=== PATIENT | female | born 2000 | race African-American/Black ===

== ENCOUNTER 2025-01-04 10:40 | Emergency (ER) | payer MEDICAID ==
[~2025-01-04] VITALS: Ht 160 cm; Wt 54.0 kg
--- NOTE | 2025-01-04 10:58 | ED.PDOC ---
History of Present Illness HPI Comments 24 year old female that is currently 11 weeks presents to the ED for the c/c of Abnormal Vaginal Bleeding. Pt states that her bleeding started last night w/ associated cramping. Pt notes that her last Menstrual Period was in October of this year. Pt notes that this is her Second . No other as sociated symptoms, modifiers, recent injuries or sick contacts present at this time. Time Seen by MD: 10:55 Reviewed Notes: Nurses Notes, Medications, Allergies Information Source: Patient, Spouse Mode of Arrival: Ambulatory Severity: Mild Timing: Hours Duration: Since onset, Hours Prehospital treatment: None Past Medical History PAST MEDICAL HISTORY: Denies Surgical History: Denies all surgeries DIFFERENTIAL TESTER History: No Pertinent DIFFERENTIAL TESTER History Family History Family History: Unknown Social History Smoker: Non-Smoker Alcohol: Denies ETOH Use Drugs: Denies Drug Use Lives In: Home Constitutional: denies: chills, diaphoresis, fatigue, fever, malaise, sweats, weakness, others EENTM: denies: blurred vision, double vision, ear bleeding, ear discharge, ear drainage, ear pain, ear ringing, eye pain, eye redness, hearing loss, mouth pain, mouth swelling, nasal discharge, nose bleeding, nose congestion, nose pain, photophobia, tearing, throat pain, throat swelling, voice changes, others Respiratory: denies: cough, hemoptysis, orthopnea, SOB at rest, shortness of breath, SOB with excertion, stridor, wheezing, others Cardiovascular: denies: chest pain, dizzy spells, diaphoresis, Dyspnea on ex ertion, edema, irregular heart beat, left arm pain, lightheadedness, palpitations, PND, syncope, others Gastrointestinal: denies: abdomen distended, abdominal pain, blood streaked bowels, constipated, diarrhea, dysphagia, difficulty swallowing, hematemesis, melena, nausea, poor appetite, poor fluid intake, rectal bleeding, rectal pain, vomiting, others Genitourinary: reports: abnormal vagina bleeding (with cramps); denies: burning, dyspareunia, dysuria, flank pain, frequency, hematuria, incontinence, pain, , vagina discharge, urgency, others Neurological: denies: dizziness, fainting, headache, left sided numbness, left sided weakness, numbness, paresthesia, pre-existing deficit, right sided numbness, right sided weakness, seizure, speech problems, tingling, tremors, weakness, others Musculoskeletal: denies: back pain, gout, joint pain, joint swelling, muscle pain, muscle stiffness, neck pain, others Integumetry: denies: bruises, change in color, change in hair/nails, dryness, laceration, lesions, lumps, rash, wounds, others Allergic/Immunocompromised: denies: Difficulty Healing, Frequent Infections, Hi ves, Itching, others Hematologic/Lymphatic: denies: anemia, blood clots, easy bleeding, easy bruising, swollen glands, others Endocrine: denies: excessive hunger, excessive sweating, excessive thirst, excessive urination, flushing, intolerance to cold, intolerance to heat, unexplained weight gain, unexplained weight loss, others Psychiatric: denies: anxiety, bipolar disorder, depression, hopeless, panic disorder, schizophrenia, sleepless, suicidal, others All Other Systems: Reviewed and Negative Physical Exam General Appearance: Moderate Distress, Normal HEENT: Normal ENT Inspection, Pharynx Normal, TMs Normal Neck: Full Range of Motion, Non-Tender, Normal, Normal Inspection Respiratory: Chest Non-Tender, Lungs Clear, No Accessory Muscle Use, No Respiratory Distress, Normal Breath Sounds Cardiovascular: No Edema, No JVD, No Murmur, No Gallop, Normal Peripheral Pulses, Regular Rate/Rhythm Breast Exam: Deferred Gastrointestinal: No Organomegaly, Non Tender, No Pulsatile Mass, Normal Bowel Sounds, Soft Genitalia: Deferred Pelvic: Deferred Rectal: Deferred Extremities: No calf tenderness, Normal capillary refill, Normal inspection, Normal range of motion, Non-tender, No pedal edema Musculoskeletal : Apperance: Normal Neurologic: Alert, svp business development II-XII nml as Tested, No Motor Deficits, Normal Affect, Normal Mood, No Sensory Deficits Cerebellar Function: Normal Reflexes: Normal Skin: Dry, Normal Color, Warm Peripheral Pulses: 3+ Radial (R), 3+ Radial (L) Lymphatic: No Adenopathy Was a procedure done? Was a procedure done?: No Differential Dx Considerations may include: Normal Electrolyte imbalance X-Ray, Labs, Meds, VS Vital Signs Date Time Temp Pulse Resp B/P (MAP) Pulse Ox O2 Delivery O2 Flow Rate FiO2 01/04/25 11:07 98.9 93 16 126/77 (93) 94 98.9 Lab Test 01/04/25 11:05 Range/Units Urine Color Yellow Yellow Urine Clarity Turbid H Clear Urine pH 5.5 5.0-9.0 Urine Specific [place] 1.027 1.001-1.035 Urine Protein Trace H Negative Urine Ketones Negative Negative Urine Blood 3+ H Negative /uL Urine Nitrite Negative Negative Urine Bilirubin Negative Negative Urine Urobilinogen Normal Negative mg/dL Urine Leukocyte Esterase 3+ Negative /uL Urine RBC 556 0 - 4 /hpf Urine Microscopic WBC 159 H 0-5 /HPF Urine Squamous Epithelial Cells Mod <5 /hpf Urine Bacteria None seen None Seen /hpf Urine Mucus Few None Seen Urine Glucose Normal Normal mg/dL Urine Test Positive Negative Patient alert. Complaining of vaginal bleeding. Vitals stable. Answering questions. Ambulating. No sign of distress. No sepsis. Ultrasound revealed normal . Urinalysis shows UTI. Was given prescription of Keflex antibiotic. Explained to the patient. Was told to follow up with her OBGYN. Was told to follow up with her primary care physician. Was told to come back if there is any problem. PATIENT: ALEXIA GUERRERO ACCT: [id number] UNIT: [id number] : 2000 LOC: ER ROOM / BED: / AGE / SEX: 24 / F ADM STATUS: REG ER SERVICE 1051 ORDERING PHYSICIAN: LO MELGAR MD PROCEDURE(s): OB4US - OB ULTRASOUND COMP LESS 14WKS REASON: cramping ORDER NUMBER(s): [id number], ACCESSION NUMBER(s): [id number] EXAM DESCRIPTION: US OB ULTRASOUND COMP LESS 14WKS CLINICAL HISTORY: cramping COMPARISON: None TECHNIQUE: Multiple transverse and longitudinal sonograms of the pelvis were obtained utilizing transabdominal and transvaginal sonography. FINDINGS: The uterus measures 11.2 X 7.1 X 7.7 cm. A single viable intrauterine is identified. The crown-rump length measures 3.7 cm, corresponding to a sonogr aphic gestational age of 10 weeks and 4 days. Positive heart motion is identified, with heart rate of 178 beats per minute. Small subchronic hematoma measuring 10 x 7 x 8 mm. The right ovary measures 2.8 X 2.0 X 1.8 cm . The right ovary demonstrates normal echogenicity and vascularity. The left ovary is not visualized. No suspicious adnexal lesions. There is no free fluid. IMPRESSION: 1. Single viable intrauterine with a sonographic gestational age of 10 weeks and 4 days. Positive heart motion is identified. 2. Small subchronic hematoma. 3. Unremarkable right ovary. The left ovary was not visualized. Time of 1ST Reevaluation: 11:25 Reevaluation 1ST: Unchanged Patient Education/Counseling: Diagnosis, Treatment, Need For Follow Up Family Education/Counseling: Diagnosis, Treatment, Need For Follow Up SEPSIS Sepsis Screen Physician Orders Ob Ultrasound Comp Less 14wks (01/04/25 10:51) Vital Signs Date Time Temp Pulse Resp B/P (MAP) Pulse Ox O2 Delivery O2 Flow Rate FiO2 01/04/25 11:07 98.9 93 16 126/77 (93) 94 98.9 Departure 1 Departure Time of Disposition: 11:16 Impression: Primary Impression: Vaginal bleeding affecting early Additional Impression: UTI (urinary tract infection) Qualified Codes: N30.01 - Acute cystitis with hematuria Disposition: HOME / SELF CARE / HOMELESS Condition: Good e-Prescriptions Cephalexin (KEFLEX CAPSULE) 250 Mg Cp 250 MG PO QID for 5 Days, #20 BOTTLE Prov: LO MELGAR MD 01/04/25 Discharged With: Self Critical Care Note Critical Care Time?: No Stability Stability form required: No Heart Score Heart Score: Heart Score Response (Comments) Value History N/A 0 EKG N/A 0 Age N/A 0 Risk Factors N/A 0 Troponin N/A 0 Total 0 I personally scribed for LO MELGAR MD ([email or web address]) on 01/04/25 at 10:58. Electronically submitted by Golden Gann ([email or web address]). I personally scribed for LO MELGAR MD ([email or web address]) on 01/04/25 at 12:29. Electronically submitted by Golden Gann ([email or web address]). LO MELGAR MD Jan 04, 2025 10:58
[2025-01-04 11:53] LABS: Urine Protein, UAD TRACE (Negative)
--- NOTE | 2025-01-04 12:02 | DVH ---
EXAM DESCRIPTION: US OB ULTRASOUND COMP LESS 14WKS CLINICAL HISTORY: cramping COMPARISON: None TECHNIQUE: Multiple transverse and longitudinal sonograms of the pelvis were obtained utilizing transabdominal a nd transvaginal sonography. FINDINGS: The uterus measures 11.2 X 7.1 X 7.7 cm. A single viable intrauterine is identified. The cr own-rump length measures 3.7 cm, corresponding to a sonographic gestational age of 10 weeks and 4 day s. Positive heart motion is identified, with heart rate of 178 beats per minute. Small howard bchronic hematoma measuring 10 x 7 x 8 mm. The right ovary measures 2.8 X 2.0 X 1.8 cm . The right ovary demonstrates normal echogenicity and va scularity. The left ovary is not visualized. No suspicious adnexal lesions. There is no free fluid. IMPRESSION: 1. Single viable intrauterine with a sonographic gestational age of 10 weeks and 4 days. Po sitive heart motion is identified. 2. Small subchronic hematoma. 3. Unremarkable right ovary. The left ovary was not visualized.
[2025-01-04] MEDS ORDERED: CEPH250C PO (12:39)
[2025-01-04 13:00] VITALS: BP 133/67; PULSE 93; RESP 18; TEMP 98.6; O2SAT 98
== END 2025-01-04 13:16 | disposition home or self-care (01) ==
LOC: ER 10:40
DX: O20.9 Hemorrhage in early pregnancy, unspecified (principal); O23.41 Unspecified infection of urinary tract in pregnancy, first trimester; N39.0 Urinary tract infection, site not specified; Z3A.11 11 weeks gestation of pregnancy
CPT/HCPCS: 76801; 81001; 81025

== ENCOUNTER 2025-01-07 17:22 | Emergency (ER) | payer MEDICAID ==
[~2025-01-07] VITALS: Ht 160 cm; Wt 52.6 kg
[~2025-01-07 17:22] MED LIST: CEPH250C PO
--- NOTE | 2025-01-07 17:51 | ED.PDOC ---
MANDOLIN REPAIR PERSON HPI Comments 24 y.o female presents to the ED for a chief complaint of vaginal bleeding associated with pelvic cramping that started 4 days ago. Patient reports bleeding started off as spotting, came to the ED 3 days ago in which she had an US done which showed Small subchronic hematoma but the rest unremarkable with fetus measuring 10 weeks and 4 days. Patient reports today she is now passing blood clots and cramping has progressively worsened. Patient denies any back pain, nausea, vomiting, fever, chills or dysuria. Time Seen by MD: 17:44 Reviewed Notes: Nurses Notes, Medications, Allergies Allergies: Coded Allergies: NO KNOWN ALLERGIES (Unverified , 01/04/25) Home Meds Active Scripts Cephalexin (KEFLEX CAPSULE) 250 Mg Cp, 250 MG PO QID for 5 Days, #20 BOTTLE Prov:LO MELGAR MD 01/04/25 Information Source: Patient Mode of Arrival: Ambulatory Timing: Days (4) Severity: Moderate Vaginal Discharge: None Vaginal Lesions: None Bleeding Quality: Clotted Vaginal Mass: None Onset Of Mass/Bleeding: Spontaneous Sexual Activity: Last Consensual [place]: Unknown Control: None History of: Current Blood Type: Unknown Associated Signs and Symptoms: Vaginal Bleeding, Cramping Past Medical History PAST MEDICAL HISTORY: Denies Surgical History: Denies all surgeries INTERVENTIONAL TECHNOLOGIST History: No Pertinent INTERVENTIONAL TECHNOLOGIST History Family History Family History: Unknown Social History Smoker: Non-Smoker Alcohol: Denies ETOH Use Drugs: Denies Drug Use Lives In: Home Constitutional: denies: chills, diaphoresis, fatigue, fever, malaise, sweats, weakness, others EENTM: denies: blurred vision, double vision, ear bleeding, ear discharge, ear drainage, ear pain, ear ringing, eye pain, eye redness, hearing loss, mouth pain, mouth swelling, nasal discharge, nose bleeding, nose congestion, nose pain, photophobia, tearing, throat pain, throat swelling, voice changes, others Respiratory: denies: cough, hemoptysis, orthopnea, SOB at rest, shortness of breath, SOB with excertion, stridor, wheezing, others Cardiovascular: denies: chest pain, dizzy spells, diaphoresis, Dyspnea on exertion, edema, irregular heart beat, left arm pain, lightheadedness, palpitations, PND, syncope, others Gastrointestinal: denies: abdomen distended, abdominal pain, blood streaked bowels, constipated, diarrhea, dysphagia, difficulty swallowing, hematemesis, melena, nausea, poor appetite, poor fluid intake, rectal bleeding, rectal pain, vomiting, others Genitourinary: reports: abnormal vagina bleeding, pain, ; denies: burning, dyspareunia, dysuria, flank pain, frequency, hematuria, incontinence, vagina discharge, urgency, others Neurological: denies: dizziness, fainting, headache, left sided numbness, left sided weakness, numbness, paresthesia, pre-existing deficit, right sided numbness, right sided weakness, seizure, speech problems, tingling, tremors, weakness, others Musculoskeletal: denies: back pain, gout, joint pain, joint swelling, muscle pain, muscle stiffness, neck pain, others Integumetry: denies: bruises, change in color, change in hair/nails, dryness, laceration, lesions, lumps, rash, wounds, others Allergic/Immunocompromised: denies: Difficulty Healing, Frequent Infections, Hives, Itching, others Hematologic/Lymphatic: denies: anemia, blood clots, easy bleeding, easy bruising, swollen glands, others Endocrine: denies: excessive hunger, excessive sweating, excessive thirst, excessive urination, flushing, intolerance to cold, intolerance to heat, unexplained weight gain, unexplained weight loss, others Psychiatric: denies: anxiety, bipolar disorder, depression, hopeless, panic disorder, schizophrenia, sleepless, suicidal, others All Other Systems: Reviewed and Negative Physical Exam General Appearance: Mild Distress HEENT: Normal ENT Inspection, Pharynx Normal, TMs Normal Neck: Full Range of Motion, Non-Tender, Normal, Normal Inspection Respiratory: Chest Non-Tender, Lungs Clear, No Accessory Muscle Use, No Respiratory Distress, Normal Breath Sounds Cardiovascular: No Edema, No JVD, No Murmur, No Gallop, Normal Peripheral Pulses, Regular Rate/Rhythm Breast Exam: Deferred Gastrointestinal: No Organomegaly, Non Tender, No Pulsatile Mass, Normal Bowel Sounds, Soft Genitalia: Deferred Pelvic: Deferred Rectal: Deferred Extremities: No calf tenderness, Normal capillary refill, Normal inspection, Normal range of motion, Non-tender, No pedal edema Musculoskeletal : Apperance: Normal Neurologic: Alert, steel erector apprentice II-XII nml as Tested, No Motor Deficits, Normal Affect, Normal Mood, No Sensory Deficits Cerebellar Function: Normal Reflexes: Normal Skin: Dry, Normal Color, Warm Lymphatic: No Adenopathy Was a procedure done? Was a procedure done?: No Differential Diagnosis (INTERVENTIONAL TECHNOLOGIST) Vaginal Bleeding: - Incomplete, - Threatened, Ectopic X-Ray, Labs, Meds, VS Vital Signs Date Time Temp Pulse Resp B/P (MAP) Pulse Ox O2 Delivery O2 Flow Rate FiO2 01/07/25 18:36 98.1 98 20 119/77 (91) 100 98.1 Lab Test 01/07/25 18:04 Range/Units Beta HCG, Quantitative 26068.8 H 1.5-4.2 mIU/mL EXAM DESCRIPTION: IMPRESSION: 1. Single viable intrauterine with a sonographic gestational age of 10 weeks and 4 days. Positive heart motion is identified. 2. Small subchronic hematoma. 3. Unremarkable right ovary. The left ovary was not visualized. At this time we did repeat an ultrasound and it does show: IMPRESSION: No intrauterine identified. Recommend correlation with B-HCG levels and follow-up [place]ounds [place]. [place] [address].8 At this time the patient is being discharged The patient will follow up with her OBGYN The patient will return to the emergency department's the condition worsens. Images Reviewed?: Images reviewed and evaluated by me Time of 1ST Reevaluation: 17:47 Reevaluation 1ST: Unchanged Patient Education/Counseling: Diagnosis, Treatment, Prognosis, Need For Follow Up Family Education/Counseling: No Family Present Departure 1 Departure Time of Disposition: 20:42 Impression: Primary Impression: Complete Disposition: 01 HOME / SELF CARE / HOMELESS Admit to: Tele Condition: Fair Discharged With: Self Critical Care Note Critical Care Time?: No Stability Stability form required: No I personally scribed for GAYLE PEREZ MD ([email or web address]) on 01/07/25 at 17:51. Electronically submitted by Ev Perez ([facility]). GAYLE PEREZ MD Jan 07, 2025 17:51
--- NOTE | 2025-01-07 20:39 | DVH ---
OB ULTRASOUND <14 WEEKS: HISTORY: paini TECHNIQUE: Multiple real-time grayscale sonographic images of the pelvis with duplex doppler color fl ow, spectral and M-mode analysis. TRANSDUCERS: Transabdominal and transvaginal FINDINGS: The uterus measures 10.1 X 7.6 X 6.1. Endometrium measures 32 mm in thickness. Right ovary measures 1.8 X 1.8 X 1.6 cm with normal doppler color flow Left ovary measures 2.2 X 1.4 X 2.2 cm with normal Doppler color flow IMPRESSION: No intrauterine identified. Recommend correlation with B-HCG levels and follow-up ultrasoun ds as indicated.
[2025-01-07 22:57] VITALS: BP 135/91; PULSE 83; RESP 12; TEMP 98.2; O2SAT 99
== END 2025-01-07 23:00 | disposition home or self-care (01) ==
LOC: ER 17:22
DX: O03.9 Complete or unspecified spontaneous abortion without complication (principal); R10.2 Pelvic and perineal pain; Z3A.10 10 weeks gestation of pregnancy
CPT/HCPCS: 36415; 76801; 76817; 84702